=== PATIENT | female | born 1965 | race Caucasian/White ===

== ENCOUNTER 2018-01-18 19:08 | Emergency (ER) | payer OTHER ==
[~2018-01-18] VITALS: Ht 160 cm; Wt 54.8 kg
[2018-01-18 19:10] VITALS: TEMP 36.7
[2018-01-18] MEDS ORDERED: SODIUM CHLORIDE 0.9% 1000ML 1,000 ML IV STA (19:38)
--- NOTE | 2018-01-18 19:50 | EMERGENCY ROOM VISIT NOTE ---
History Report prepared by Laura: Kiara Avelar Under the Supervision of: Dr. Rod Whatley M.D. First contact with patient: 19:15 Chief Complaint: NEURO SYMPTOMS Stated Complaint: CERVICAL DISK IS PRESSING ON SPINAL CORD History of Present Illness The patient is a 52 year old female who presents to the Emergency Room with complaints of worsening neurological symptoms occurring over the last month. She states that she has been shaking, passing out, and has been unable to feel her sides or hands intermittently over the last month. She also reports that sometimes she is unable to walk, read, or function because of her symptoms. The patient reports feeling very weak. She reports that a couple weeks ago she had a hypoglycemic seizure where she was shaking and half of her body went numb for two hours. She states that she constantly has numbness and tingling over her body. 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 She states that she had a cervical disc pressing against her spinal cord in 2013 that she had removed. The patient also reports having bulging discs and states that there is concern that another cervical disc is pressing up against her spine. She states that her extremities swell intermittently when she has the neurologic symptoms. The patient states that she also has gastritis, GERD, and immunosuppression, and reports that she gets frequent UTI's due to the immunosuppression. The patient states that she has also been incontinent the last 2 days and that she had an endoscopy done which did not explain why she was incontinent. She states that her doctor that she sees for her spine is Dr. Cortez in [place]. She reports a family history of cancer. Source of History: patient Onset: over the last month Position: other (generalized ) Quality: other (neurological symptoms ) Timing: worsening Associated Symptoms: + weakness (shaking, passing out), + numbness Review of Systems See HPI for pertinent positives & negatives. A total of 10 systems reviewed and were otherwise negative. Past Medical & Surgical Medical Problems: (1) Back problem (2) Herniated disc (3) Spina bifida Surgical Problems: (1) H/O cervical discectomy Family History Cancer Social History Smoking Status: Current Every Day Smoker Marital Status: in relationship Occupation Status: employed Current/Historical Medications Scheduled Biotin (Super Biotin), 10,000 MCG PO DAILY Gabapentin (Neurontin), 800 MG PO TID Pantoprazole (Protonix), 40 MG PO DAILY Ranitidine Hcl (Zantac), 150 MG PO HS Sulfa/Trimethoprim (Bactrim Ds 800MG/160MG), 1 TAB PO BID [Corticosteroid Inh], 1 PUFF INH DAILY Allergies Coded Allergies: Erythromycin (Verified Allergy, Severe, HIVES, 01/18/18) Penicillins (Verified Allergy, Severe, HIVES, 01/18/18) Cat Dander (Verified Allergy, Intermediate, ITCHY EYES, SNEEZING, PUFFY EYES, CONGESTION, 01/18/18) Ciprofloxacin (Verified Allergy, Intermediate, HIVES, 01/18/18) Doxycycline (Verified Allergy, Intermediate, HIVES, 01/18/18) Molds and Smuts (Verified Allergy, Intermediate, ITCHY, PUFFY EYES, SNEEZING, CONGESTION, 01/18/18) POLLEN (Verified Allergy, Intermediate, ITCHY, PUFFY EYES, SNEEZING, CONGESTION, 01/18/18) Uncoded Allergies: MILDEW (Allergy, Intermediate, ITCHY, PUFFY EYES, SNEEZING, CONGESTION, ) Physical Exam Vital Signs Date Time Temp Pulse Resp B/P (MAP) Pulse Ox O2 Delivery O2 Flow Rate FiO2 01/18/18 22:12 75 16 119/82 98 01/18/18 21:45 72 13 102/74 97 Room Air 01/18/18 20:33 77 01/18/18 20:25 99 Room Air 01/18/18 20:25 99 Room Air 01/18/18 20:20 75 16 104/76 99 Room Air 87 112/75 89 107/81 01/18/18 19:10 36.7 114 16 138/90 98 Room Air Physical Exam GENERAL: Awake, alert, cachectic in appearance, in no acute distress HENT: Normocephalic, atraumatic. Oropharynx unremarkable. EYES: Normal conjunctiva. Sclera non-icteric. NECK: Supple. No nuchal rigidity. FROM. No JVD. RESPIRATORY: Clear to auscultation. CARDIAC: Regular rate, normal rhythm. Extremities warm and well perfused. Pulses equal. ABDOMEN: Soft, non-distended. No tenderness to palpation. No rebound or guarding. No masses. RECTAL: Deferred. MUSCULOSKELETAL: Chest examination reveals no tenderness. The back is symmetrical on inspection without obvious abnormality. There is no CVA tenderness to palpation. No joint edema. LOWER EXTREMITIES: Calves are equal size bilaterally and non-tender. No edema. No discoloration. NEURO: Normal sensorium. No sensory or motor deficits noted. Can walk on tip toes and heels. SKIN: No rash or jaundice noted. Medical Decision & Procedures ER Provider Diagnostic Interpretation: Radiology results as stated below per my review and radiologist interpretation: CHEST ONE VIEW PORTABLE CLINICAL HISTORY: 52 years-old Female presenting with Pt c/o SOB. TECHNIQUE: Portable upright AP view of the chest was obtained. COMPARISON: None. FINDINGS: Cardiomediastinal silhouette normal. No focal opacity. No large effusion or pneumothorax. Anterior cervical fusion hardware noted. Upper abdomen normal. IMPRESSION: 1. No acute cardiopulmonary disease. Electronically signed by: Marshall Sanchez M.D. 01/18/2018 8:20 PM Dictated Date/Time: 01/18/2018 8:19 PM Laboratory Results 01/18/18 20:10 Red Blood Count 4.89, Mean Corpuscular Volume 88.5, Mean Corpuscular Hemoglobin 30.7, Mean Corpuscular Hemoglobin Concent 34.6, Mean Platelet Volume 11.4, Neutrophils (%) (Auto) 56.1, Lymphocytes (%) (Auto) 36.7, Monocytes (%) (Auto) 6.0, Eosinophils (%) (Auto) 0.7, Basophils (%) (Auto) 0.3, Neutrophils # (Auto) 3.37, Lymphocytes # (Auto) 2.20, Monocytes # (Auto) 0.36, Eosinophils # (Auto) 0.04, Basophils # (Auto) 0.02 01/18/18 20:10 Test 01/18/18 19:55 01/18/18 19:56 01/18/18 20:10 Urine Color DK YELLOW Urine Appearance CLOUDY (CLEAR) Urine pH 5.0 (4.5-7.5) Urine Specific [place] 1.025 (1.000-1.030) Urine Protein NEG (NEG) Urine Glucose (UA) NEG (NEG) Urine Ketones NEG (NEG) Urine Occult Blood 1+ (NEG) Urine Nitrite POS (NEG) Urine Bilirubin NEG (NEG) Urine Urobilinogen NEG (NEG) Urine Leukocyte Esterase MODERATE (NEG) Urine WBC (Auto) >30 /hpf (0-5) Urine RBC (Auto) 0-4 /hpf (0-4) Urine Hyaline Casts (Auto) 10-30 /lpf (0-5) Urine Epithelial Cells (Auto) 5-10 /lpf (0-5) Urine Bacteria (Auto) 4+ (NEG) Bedside Glucose 90 mg/dl (70-90) White Blood Count 6.00 K/uL (4.8-10.8) Red Blood Count 4.89 M/uL (4.2-5.4) Hemoglobin 15.0 g/dL (12.0-16.0) Hematocrit 43.3 % (37-47) Mean Corpuscular Volume 88.5 fL (80-100) Mean Corpuscular Hemoglobin 30.7 pg (25-34) Mean Corpuscular Hemoglobin Concent 34.6 g/dl (32-36) Platelet Count 174 K/uL (130-400) Mean Platelet Volume 11.4 fL (7.4-10.4) Neutrophils (%) (Auto) 56.1 % Lymphocytes (%) (Auto) 36.7 % Monocytes (%) (Auto) 6.0 % Eosinophils (%) (Auto) 0.7 % Basophils (%) (Auto) 0.3 % Neutrophils # (Auto) 3.37 K/uL (1.4-6.5) Lymphocytes # (Auto) 2.20 K/uL (1.2-3.4) Monocytes # (Auto) 0.36 K/uL (0.11-0.59) Eosinophils # (Auto) 0.04 K/uL (0-0.5) Basophils # (Auto) 0.02 K/uL (0-0.2) RDW Standard Deviation 41.1 fL (36.4-46.3) RDW Coefficient of Variation 12.7 % (11.5-14.5) Immature Granulocyte % (Auto) 0.2 % Immature Granulocyte # (Auto) 0.01 K/uL (0.00-0.02) Erythrocyte Sedimentation Rate 5 mm/hr (0-21) Anion Gap 4.0 mmol/L (3-11) Est Creatinine Clear Calc Drug Dose 60.5 ml/min Estimated GFR () 84.1 Estimated GFR (Non- 72.6 BUN/Creatinine Ratio 16.8 (10-20) Calcium Level 8.6 mg/dl (8.5-10.1) Total Bilirubin 0.3 mg/dl (0.2-1) Direct Bilirubin < 0.1 mg/dl (0-0.2) Aspartate Amino Transf (AST/SGOT) 24 U/L (15-37) Alanine Aminotransferase (ALT/SGPT) 28 U/L (12-78) Alkaline Phosphatase 97 U/L (45-117) Total Creatine Kinase 77 U/L (26-192) Creatine Kinase MB 1.0 ng/ml (0.5-3.6) Creatine Kinase MB Ratio 1.3 (0-3.0) Troponin I < 0.015 ng/ml (0-0.045) C-Reactive Protein < 0.29 mg/dl (0-0.29) Total Protein 7.2 gm/dl (6.4-8.2) Albumin 3.8 gm/dl (3.4-5.0) Thyroid Stimulating Hormone (TSH) 2.520 uIu/ml (0.300-4.500) [place] Level < 0.2 mMOL/L (0.6-1.2) Lyme Disease IgG Antibody NEG (NEG) Lyme Disease IgM Antibody NEG (NEG) Labs reviewed by ED physician. Medications Administered Medications (Trade) Dose Ordered Sig/Raysa Route Start Time Stop Time Status Last Admin Dose Admin Sodium Chloride 1,000 ml @ 999 mls/hr Q1H1M STAT IV 01/18/18 19:38 01/18/18 20:38 DC 01/18/18 20:32 999 MLS/HR Ceftriaxone Sodium (Rocephin Inj) 1 gm NOW STAT IV 01/18/18 20:18 01/18/18 20:20 DC 01/18/18 20:32 1 GM ECG Per My Interpretation Indication: weakness Rate (beats per minute): 85 Rhythm: normal sinus Findings: other (no ST elevation or depression, old anterior infarct) Comparison ECG Date: no prior available ED Course 1917: Past medical records reviewed. The patient was evaluated in room A10. A complete history and physical examination was performed. 1937: Ordered Sodium Chloride 1000 ml @ 999 mls/hr IV. Medical Decision Differential diagnosis: Etiologies such as metabolic, infection, hypo/hyperglycemia, electrolyte abnormalities, cardiac sources, intracerebral event, toxicologic, neurologic, as well as others were entertained. This is a 52-year-old female who presents the emergency department after having moved here from [place]. Patient moved here to be closer to [facility]. She has a number of complaints but is very vague in her complaints. Patient has a history of Raynaud's. in addition she notes that she has polycythemia however her laboratory results here were normal. She does appear to have a urinary tract infection. The patient is insistent that there is a disc pressing on her neck which is causing her to pass out I will note the patient is able to walk on her tiptoes as well as her heels. She has no evidence of saddle anesthesia, she has no loss of bowel or bladder control here in the emergency department. She was started on IV Rocephin. MRI of the C-spine does not show any acute pressure on the spinal cord. Stressed to the patient she needs to follow-up with her orthopedic surgeon in [place]. I will place her on Bactrim for a UTI. I also contacted case management so that the patient can get a primary care physician here in [place]. Medication Reconcilliation Current Medication List: was personally reviewed by me Blood Pressure Screening Patient's blood pressure: Normal blood pressure Impression Primary Impression: Weakness Additional Impression: UTI (urinary tract infection) Scribe Attestation The scribe's documentation has been prepared under my direction and personally reviewed by me in its entirety. I confirm that the note above accurately reflects all work, treatment, procedures, and medical decision making performed by me. Departure Information Dispostion Home / Self-Care Prescriptions Sulfa/Trimethoprim (Bactrim Ds 800MG/160MG) Tab 1 TAB PO BID for 7 Days, #14 TAB Prov: Rod Whatley MD 01/18/18 Referrals No Doctor, Assigned (PCP) Patient Instructions My [facility] Problem Qualifiers Additional Impression: UTI (urinary tract infection) Urinary tract infection type: acute cystitis Hematuria presence: with hematuria Qualified Codes: N30.01 - Acute cystitis with hematuria
[2018-01-18 20:06] VITALS: Ht 160 cm; Wt 54.8 kg
[2018-01-18] MEDS ORDERED: BIOT50002 PO (20:06)
[2018-01-18] MEDS ORDERED: RANI150T3 PO (20:06)
[2018-01-18] MEDS ORDERED: [UNRECOGNIZED DRUG - OTHER] INH (20:06)
[2018-01-18] MEDS ORDERED: GABA800T PO (20:06)
[2018-01-18] MEDS ORDERED: PANT40TA PO (20:06)
[2018-01-18] MEDS ORDERED: CEFTRIAXONE SOD INJ 1 GM ADDVIAL IV STA (20:18)
--- NOTE | 2018-01-18 20:21 | DIAGNOSTIC IMAGING REPORT ---
CHEST ONE VIEW PORTABLE CLINICAL HISTORY: 52 years-old Female presenting with Pt c/o SOB. TECHNIQUE: Portable upright AP view of the chest was obtained. COMPARISON: None. FINDINGS: Cardiomediastinal silhouette normal. No focal opacity. No large effusion or pneumothorax. Anterior cervical fusion hardware noted. Upper abdomen normal. IMPRESSION: 1. No acute cardiopulmonary disease. Electronically signed by: Marshall Sanchez M.D. 01/18/2018 8:20 PM Dictated Date/Time: 01/18/2018 8:19 PM
[2018-01-18 20:25] VITALS: O2SAT 99
[2018-01-18 20:27] LABS: BASO % 0.3 %; BASO ABS # 0.02 K/uL (0-0.2); EOS % 0.7 %; EOS ABS # 0.04 K/uL (0-0.5); HEMATOCRIT 43.3 % (37-47); IG# 0.01 K/uL (0.00-0.02); LYMPH % 36.7 %; MEAN CELL VOLUME 88.5 fL (80-100); MEAN CORPUSCULAR HEMOGLOBIN 30.7 pg (25-34); MEAN CORPUSCULAR HGB CONC 34.6 g/dl (32-36); MEAN PLATELET VOLUME 11.4 fL (7.4-10.4); MONO ABS # 0.36 K/uL (0.11-0.59); NEUT % 56.1 %; NEUT ABS # 3.37 K/uL (1.4-6.5); PLATELET COUNT 174 K/uL (130-400); RED CELL DISTRIBUTION WIDTH CV 12.7 % (11.5-14.5); RED CELL DISTRIBUTION WIDTH SD 41.1 fL (36.4-46.3)
[2018-01-18 20:54] LABS: BLOOD UREA NITROGEN 15 mg/dl (7-18); CREATININE 0.92 mg/dl (0.60-1.20); GLUCOSE 67 mg/dl (70-99)
[2018-01-18 20:55] LABS: ALBUMIN 3.8 gm/dl (3.4-5.0); ALKALINE PHOSPHATASE 97 U/L (45-117); ALT/SGPT 28 U/L (12-78); AST/SGOT 24 U/L (15-37); CALCIUM 8.6 mg/dl (8.5-10.1); CARBON DIOXIDE 31 mmol/L (21-32); POTASSIUM 3.7 mmol/L (3.5-5.1); SODIUM 139 mmol/L (136-145); TOTAL PROTEIN 7.2 gm/dl (6.4-8.2)
--- NOTE | 2018-01-18 21:32 | DIAGNOSTIC IMAGING REPORT ---
CERVICAL WITHOUT CONTRAST CLINICAL HISTORY: 52 years-old Female presenting with Pt c/o disc pain, numbness in the bilateral arms, dizziness, confusion, facial paralysis. TECHNIQUE: Multisequence, multiplanar MR imaging of the cervical spine was performed without the use of intravenous contrast. IV contrast: None. COMPARISON: None. FINDINGS: Localizer images: Unremarkable. Straightening of cervical lordosis likely part to anterior cervical discectomy and fusion C5-6 with interbody spacer. Nonoperative levels demonstrate normal vertebral body height, alignment, and bone marrow signal intensity. Intervertebral discs at the nonoperative levels are grossly preserved though there is normal disc desiccation in the upper cervical spine. Multilevel degenerative changes further detailed below: C2-3: No significant neural foraminal or spinal canal narrowing. C3-4: Minimal uncovertebral hypertrophy without significant neural foraminal or spinal canal narrowing. C4-5: Right uncovertebral hypertrophy results in mild right neural foraminal narrowing. No spinal canal narrowing. C5-6: No significant neural foraminal or spinal canal narrowing. C6-7: Disc osteophyte complex/uncovertebral hypertrophy results in mild right and moderate left neural foraminal narrowing. Effacement of the ventral thecal sac without evidence of contouring of the spinal cord. C7-T1: No significant neural foraminal or spinal canal narrowing. Perineural cysts suggested bilaterally. Cervical spinal cord normal in morphology and signal intensity. No focal lesion. Craniocervical junction normal. No epidural collection. Paraspinal soft tissues within normal limits. IMPRESSION: 1. Postsurgical changes of anterior cervical discectomy and fusion of C5-6. 2. Mild adjacent level degenerative changes with neural foraminal narrowing on the right at C4-5 and left greater than right at C6-7. Electronically signed by: Marshall Sanchez M.D. 01/18/2018 9:30 PM Dictated Date/Time: 01/18/2018 9:23 PM
[2018-01-18] MEDS ORDERED: SULF800T23 PO (21:55)
[2018-01-18 22:12] VITALS: BP 119/82; PULSE 75; O2SAT 98
[2018-01-19] MEDS ORDERED: FLUT1INH5 INH (20:46)
[2018-01-19] MEDS ORDERED: CHOL20007 PO (20:46)
[2018-01-19] MEDS ORDERED: NITR-5 PO (20:49)
== END 2018-01-18 22:12 | disposition home or self-care (01) ==
LOC: C.EDB 19:11 → C.EDA 22:12
DX: R53.1 Weakness (principal); N30.01 Acute cystitis with hematuria; K21.9 Gastro-esophageal reflux disease without esophagitis; Q05.9 Spina bifida, unspecified; F17.200 Nicotine dependence, unspecified, uncomplicated; Z87.440 Personal history of urinary (tract) infections; Z98.890 Other specified postprocedural states; Z88.0 Allergy status to penicillin; Z88.1 Allergy status to other antibiotic agents; Z91.09 Other allergy status, other than to drugs and biological substances; Z79.899 Other long term (current) drug therapy

== ENCOUNTER 2018-01-19 20:06 | Emergency (ER) | payer OTHER ==
[~2018-01-19] VITALS: Ht 160 cm; Wt 55.1 kg
[~2018-01-19 20:06] MED LIST: BIOT50002 PO; GABA800T PO; PANT40TA PO; RANI150T3 PO; SULF800T23 PO; [UNRECOGNIZED DRUG - OTHER] INH
[2018-01-19 20:10] VITALS: TEMP 36.6; Ht 160 cm; Wt 55.1 kg
--- NOTE | 2018-01-19 20:41 | EMERGENCY ROOM VISIT NOTE ---
History Report prepared by Laura: Radha Stock Under the Supervision of: Dr. Rod Moser D.O. First contact with patient: 20:21 Chief Complaint: ALLERGIC REACTION Stated Complaint: HIVES,THROAT CLOSING UP DUE TO MEDS History of Present Illness The patient is a 52 year old female who presents to the Emergency Room with complaints of persistent allergic reaction starting 3 hours ago. The patient was in the ED yesterday and started on Bactrim for a UTI. She took her first dose 3 hours ago. She has started getting hives and her throat is swelling. She has not taken any Benadryl. She is allergic to several antibiotics. Source of History: patient Onset: 3 hours ago Position: other (diffuse) Quality: other (allergic reaction) Timing: other (persistent) Associated Symptoms: + rash Note: Pt reports throat swelling. Review of Systems See HPI for pertinent positives & negatives. A total of 10 systems reviewed and were otherwise negative. Past Medical & Surgical Medical Problems: (1) Back problem (2) Herniated disc (3) Spina bifida Surgical Problems: (1) H/O cervical discectomy Family History Cancer Social History Smoking Status: Current Every Day Smoker Marital Status: in relationship Current/Historical Medications Scheduled Biotin (Super Biotin), 10,000 MCG PO DAILY Cholecalciferol (Vitamin D3), 2,000 UNITS PO DAILY Fluticasone Furoate (Inhalatio (Arnuity Ellipta), 1 PUFF INH DAILY Gabapentin (Neurontin), 800 MG PO TID Pantoprazole (Protonix), 40 MG PO DAILY Ranitidine Hcl (Zantac), 150 MG PO HS Sulfa/Trimethoprim (Bactrim Ds 800MG/160MG), 1 TAB PO BID Allergies Coded Allergies: Erythromycin (Verified Allergy, Severe, HIVES, 01/19/18) Penicillins (Verified Allergy, Severe, HIVES, 01/19/18) Cat Dander (Verified Allergy, Intermediate, ITCHY EYES, SNEEZING, PUFFY EYES, CONGESTION, 01/19/18) Ciprofloxacin (Verified Allergy, Intermediate, HIVES, 01/19/18) Doxycycline (Verified Allergy, Intermediate, HIVES, 01/19/18) Molds and Smuts (Verified Allergy, Intermediate, ITCHY, PUFFY EYES, SNEEZING, CONGESTION, 01/19/18) POLLEN (Verified Allergy, Intermediate, ITCHY, PUFFY EYES, SNEEZING, CONGESTION, 01/19/18) Sulfamethoxazole w/Trimethoprim (Unverified Adverse Reaction, Severe, hives, 01/19/18) Uncoded Allergies: MILDEW (Allergy, Intermediate, ITCHY, PUFFY EYES, SNEEZING, CONGESTION, ) Physical Exam Vital Signs Date Time Temp Pulse Resp B/P (MAP) Pulse Ox O2 Delivery O2 Flow Rate FiO2 01/19/18 20:39 96 Room Air 01/19/18 20:10 36.6 93 20 135/84 98 Room Air Physical Exam CONSTITUTIONAL/VITAL SIGNS: Reviewed / noted above. GENERAL: Non-toxic in appearance. INTEGUMENTARY: Warm, dry, and [place]. Dime sized hive in the left maxillary region , no other appreciated hives. HEAD: Normocephalic. EYES: without scleral icterus or trauma. ENT/OROPHARYNX: clear and moist. LYMPHADENOPATHY/NECK: Is supple without lymphadenopathy or meningismus. RESPIRATORY: Lungs clear and equal. CARDIOVASCULAR: Regular rate and rhythm. GI/ABDOMEN: Soft and nontender. No organomegaly or pulsatile mass. No rebound or guarding. Normal bowel sounds. EXTREMITIES: Warm and well perfused. BACK: No CVA tenderness. NEUROLOGICAL: Intact without focal deficits. PSYCHIATRIC: normal affect. MUSCULOSKELETAL: Normally developed with good muscle tone. Medical Decision & Procedures Medications Administered Medications (Trade) Dose Ordered Sig/Raysa Route Start Time Stop Time Status Last Admin Dose Admin Nitrofurantoin Macrocrystals (Macrobid Cap) 100 mg ONE ONCE PO 01/19/18 20:45 01/19/18 20:46 DC 01/19/18 20:38 100 MG Diphenhydramine HCl (Benadryl Cap) 50 mg NOW ONCE PO 01/19/18 20:45 01/19/18 20:46 DC 01/19/18 20:38 50 MG ED Course 2026: Previous medical records were reviewed. The patient was evaluated in room A3. A complete history and physical examination was performed. I discussed the results and findings with the patient. She verbalized agreement of the treatment plan. She was discharged home. 2044: Benadryl Cap 50 mg PO, Macrobid Cap 100 mg PO. Medical Decision Differential diagnosis: Etiologies such as allergic reaction, anaphylaxis, urticaria, [place] syndrome, toxic epidermal necrolysis, erythema multiforme, cellulitis, as well as others were entertained. This is a 52-year-old female who presents to the ED with a chief complaint of allergic reaction. The patient was here last night and diagnosed with a UTI. The urine culture shows gram-negative bacilli. The patient was started on Bactrim. She took her first dose today around 6 PM. Shortly thereafter, she developed itchiness of her head, a sensation of swelling of the eyelids and a sensation of swelling in throat. The patient came in for evaluation. She thought she took Benadryl but accidentally took Vistaril. Her exam reveals clear lung sounds. She is in no distress. She has a small hive in the left maxillary region. The eyelids did not appear obviously swollen or edematous. Her throat is completely clear without evidence of edema or erythema. The patient appears to be having a mild reaction to the Bactrim. She will discontinue this and was started on Macrobid. She has tolerated this in the past. She has a number of other allergies to medication. The patient was given Benadryl 50 mg p.o. She will be discharged on Macrobid and Benadryl. Medication Reconcilliation Current Medication List: was personally reviewed by me Blood Pressure Screening Patient's blood pressure: Elevated blood pressure Blood pressure disposition: Elevated BP felt to be situational Impression Primary Impression: Allergic reaction Scribe Attestation The scribe's documentation has been prepared under my direction and personally reviewed by me in its entirety. I confirm that the note above accurately reflects all work, treatment, procedures, and medical decision making performed by me. Departure Information Dispostion Home / Self-Care Prescriptions Nitrofurantoin Monohyd Macrocr (Macrobid) 100 Mg Cap 100 MG PO BID, #14 CAP Prov: Rod Moser D.O. 01/19/18 Referrals No Doctor, Assigned (PCP) Patient Instructions My [facility] Additional Instructions Macrobid as prescribed. Take Benadryl 50mg every 6-8 hours as needed for allergic reaction symptoms. Follow other directions given. Discontinue Bactrim.
[2018-01-19] MEDS ORDERED: NITROFURANTOIN MONOHYDRATE 100 MG CAP PO ONE (20:45)
[2018-01-19] MEDS ORDERED: FLUT1INH5 INH (20:46)
[2018-01-19] MEDS ORDERED: CHOL20007 PO (20:46)
[2018-01-19] MEDS ORDERED: NITR-5 PO (20:49)
[2018-01-19 21:09] VITALS: BP 108/75; PULSE 69; O2SAT 100
--- NOTE | 2018-01-20 12:58 | Pharmacy Progress Note ---
ED Pharmacist Culture FollowUp Date of Service: January 20, 2018. Patient was sent home with a prescription for bactrim, subsequently switched to macrobid 100mg BID X 7 days, which should cover the E. coli growing from the patient's urine culture.
== END 2018-01-19 21:10 | disposition home or self-care (01) ==
LOC: C.EDB 20:07 → C.EDA 21:10
DX: L50.9 Urticaria, unspecified (principal); T37.0X5A Adverse effect of sulfonamides, initial encounter; X58.XXXA Exposure to other specified factors, initial encounter; Q05.9 Spina bifida, unspecified; N39.0 Urinary tract infection, site not specified; F17.200 Nicotine dependence, unspecified, uncomplicated; Z79.899 Other long term (current) drug therapy; Z88.1 Allergy status to other antibiotic agents; Z88.0 Allergy status to penicillin; Z88.2 Allergy status to sulfonamides; Z91.048 Other nonmedicinal substance allergy status

== ENCOUNTER 2018-04-25 23:03 | Emergency (ER) | payer OTHER ==
[~2018-04-25] VITALS: Ht 160 cm; Wt 51.6 kg
[~2018-04-25 23:03] MED LIST changes: +BIOT1CAP8 PO; -BIOT50002 PO; +CHOL20007 PO; +FLUT1INH5 INH; -SULF800T23 PO; +TRAM-10 PO; -[UNRECOGNIZED DRUG - OTHER] INH
[2018-04-25 23:10] VITALS: Ht 160 cm; Wt 51.6 kg
[2018-04-25] MEDS ORDERED: KETOROLAC TROMETHAMINE 30 MG/ML VIAL IV STA (23:42)
--- NOTE | 2018-04-25 23:45 | EMERGENCY ROOM VISIT NOTE ---
History Report prepared by Laura: Heather Myles Under the Supervision of: Dr. Renetta Calderon D.O. First contact with patient: 23:23 Chief Complaint: URINARY SYMPTOMS Stated Complaint: LOWER BACK AND ABDOMINAL PAIN, URINARY ISSUES Nursing Triage Summary: buring and frequency with urination History of Present Illness The patient is a 52 year old female who presents to the Emergency Room with complaints of persistent urinary symptoms that started a few days ago. The patient rates her pain a 7/10 in severity. She reports she has had frequent urination and pain with urination. She states the second day that her symptoms started she was unable to urinate at all. She notes her urine is not cloudy and does not have an odor. She also complains of left abdominal pain and nausea for the last few days. She denies vomiting, diarrhea, or blood in stool. The patient has a history of UTI and kidney stones. She notes her last UTI was 2 months ago. She states "it feels like someone set me on fire. I thought I had a fever but I don't." She notes she had black and blue circles that looked like bruises on her legs but states they did not hurt. Source of History: patient Onset: a few days ago Symptom Intensity: 7/10 Quality: other (frequent urination) Timing: other (persistent) Associated Symptoms: + nausea, + abdominal pain, No vomiting, No melena, No diarrhea Review of Systems See HPI for pertinent positives & negatives. A total of 10 systems reviewed and were otherwise negative. Past Medical & Surgical Medical Problems: (1) Back problem (2) Herniated disc (3) Spina bifida Surgical Problems: (1) H/O cervical discectomy Family History Cancer Social History Smoking Status: Current Every Day Smoker Alcohol Use: none Marital Status: in relationship Housing Status: other Occupation Status: unemployed Current/Historical Medications Scheduled Biotin (Biotin), 3,000 MCG PO DAILY Cholecalciferol (Vitamin D3), 2,000 UNITS PO DAILY Fluticasone Furoate (Inhalatio (Arnuity Ellipta), 1 PUFF INH DAILY Gabapentin (Neurontin), 800 MG PO TID Pantoprazole (Protonix), 40 MG PO DAILY Scheduled PRN Ranitidine Hcl (Zantac), 150 MG PO HS PRN for ACID REFLUX Tramadol (Ultram), 50-100 MG PO Q4H PRN for Pain Allergies Coded Allergies: Erythromycin (Verified Allergy, Severe, HIVES, 01/19/18) Penicillins (Verified Allergy, Severe, HIVES, 01/19/18) Cat Dander (Verified Allergy, Intermediate, ITCHY EYES, SNEEZING, PUFFY EYES, CONGESTION, 01/19/18) Ciprofloxacin (Verified Allergy, Intermediate, HIVES, 01/19/18) Doxycycline (Verified Allergy, Intermediate, HIVES, 01/19/18) Molds and Smuts (Verified Allergy, Intermediate, ITCHY, PUFFY EYES, SNEEZING, CONGESTION, 01/19/18) POLLEN (Verified Allergy, Intermediate, ITCHY, PUFFY EYES, SNEEZING, CONGESTION, 01/19/18) Sulfamethoxazole w/Trimethoprim (Unverified Adverse Reaction, Severe, hives, 01/19/18) Uncoded Allergies: MILDEW (Allergy, Intermediate, ITCHY, PUFFY EYES, SNEEZING, CONGESTION, ) Physical Exam Vital Signs Date Time Temp Pulse Resp B/P (MAP) Pulse Ox O2 Delivery O2 Flow Rate FiO2 04/26/18 01:02 36.5 92 16 126/81 97 04/26/18 00:45 92 16 126/81 97 Room Air 04/25/18 23:10 36.5 86 18 132/87 98 Room Air Physical Exam HEENT: Head - normocephalic and atraumatic Pupils are equal, round, and reactive to light. Extraocular eye muscles are intact, and sclera are anicteric. Nose - moist nasal mucosa without discharge. Mouth - moist buccal mucosa. Oropharynx is nonerythematous and there is no tonsillar exudate or edema noted. Neck: Supple; no JVD, nuchal rigidity, cervical lymphadenopathy. Heart: Regular rate and rhythm. There is a normal S1 and S2 with no murmurs, clicks, or gallops appreciated. Lungs: Clear to auscultation bilaterally with no wheezes, rales, or rhonchi. Abdomen: Soft, pain with palpation to left lower quadrant, nondistended, with good bowel sounds. There are no palpable pulsatile masses or hepatosplenomegaly. There is no guarding, rigidity, or rebound noted. Extremities: No evidence of cyanosis, clubbing, or edema. There are easily palpable peripheral pulses. Skin: warm and dry with good turgor and no rashes. Medical Decision & Procedures Laboratory Results 04/25/18 23:49 Red Blood Count 4.55, Mean Corpuscular Volume 90.5, Mean Corpuscular Hemoglobin 30.3, Mean Corpuscular Hemoglobin Concent 33.5, Mean Platelet Volume 12.2, Neutrophils (%) (Auto) 46.5, Lymphocytes (%) (Auto) 45.1, Monocytes (%) (Auto) 6.3, Eosinophils (%) (Auto) 1.1, Basophils (%) (Auto) 0.8, Neutrophils # (Auto) 2.93, Lymphocytes # (Auto) 2.84, Monocytes # (Auto) 0.40, Eosinophils # (Auto) 0.07, Basophils # (Auto) 0.05 04/25/18 23:49 Test 04/25/18 23:49 White Blood Count 6.30 K/uL (4.8-10.8) Red Blood Count 4.55 M/uL (4.2-5.4) Hemoglobin 13.8 g/dL (12.0-16.0) Hematocrit 41.2 % (37-47) Mean Corpuscular Volume 90.5 fL (80-100) Mean Corpuscular Hemoglobin 30.3 pg (25-34) Mean Corpuscular Hemoglobin Concent 33.5 g/dl (32-36) Platelet Count 182 K/uL (130-400) Mean Platelet Volume 12.2 fL (7.4-10.4) Neutrophils (%) (Auto) 46.5 % Lymphocytes (%) (Auto) 45.1 % Monocytes (%) (Auto) 6.3 % Eosinophils (%) (Auto) 1.1 % Basophils (%) (Auto) 0.8 % Neutrophils # (Auto) 2.93 K/uL (1.4-6.5) Lymphocytes # (Auto) 2.84 K/uL (1.2-3.4) Monocytes # (Auto) 0.40 K/uL (0.11-0.59) Eosinophils # (Auto) 0.07 K/uL (0-0.5) Basophils # (Auto) 0.05 K/uL (0-0.2) RDW Standard Deviation 41.9 fL (36.4-46.3) RDW Coefficient of Variation 12.7 % (11.5-14.5) Immature Granulocyte % (Auto) 0.2 % Immature Granulocyte # (Auto) 0.01 K/uL (0.00-0.02) Urine Color YELLOW Urine Appearance CLEAR (CLEAR) Urine pH 7.0 (4.5-7.5) Urine Specific [place] 1.018 (1.000-1.030) Urine Protein NEG (NEG) Urine Glucose (UA) NEG (NEG) Urine Ketones NEG (NEG) Urine Occult Blood NEG (NEG) Urine Nitrite NEG (NEG) Urine Bilirubin NEG (NEG) Urine Urobilinogen NEG (NEG) Urine Leukocyte Esterase TRACE (NEG) Urine WBC (Auto) 1-5 /hpf (0-5) Urine RBC (Auto) 0-4 /hpf (0-4) Urine Hyaline Casts (Auto) 1-5 /lpf (0-5) Urine Epithelial Cells (Auto) 10-20 /lpf (0-5) Urine Bacteria (Auto) NEG (NEG) Anion Gap 6.0 mmol/L (3-11) Est Creatinine Clear Calc Drug Dose 69.4 ml/min Estimated GFR () 101.2 Estimated GFR (Non- 87.3 BUN/Creatinine Ratio 32.2 (10-20) Calcium Level 8.5 mg/dl (8.5-10.1) Laboratory results per my review. Medications Administered Medications (Trade) Dose Ordered Sig/Raysa Route Start Time Stop Time Status Last Admin Dose Admin Ketorolac Tromethamine (Toradol Inj) 30 mg NOW STAT IV 04/25/18 23:42 04/25/18 23:44 DC 04/25/18 23:42 30 MG Procedure Toradol Inj 30 mg IV. ED Course 2323: Past medical records reviewed. The patient was evaluated in room B2. A complete history and physical exam was performed. An IV lock was initiated and labs were drawn as above. A urine specimen was obtained. 2342: Ordered Toradol Inj 30 mg IV. 0038: I updated the patient on her test results. 0045: Upon reevaluation, the patient is resting comfortably. She verbalized agreement of the treatment plan. She was discharged home. Medical Decision The patient is a 52 year old female who presents to the Emergency Department with urinary symptoms. Differential diagnosis includes ureteral colic, UTI, pyelonephritis, diverticulitis. Lab results show: No leukocytosis Stable H&H Urine only positive for epithelial cells Trace leukocyte esterase BUN 25 Creatinine 0.7 Normal glucose This is a 52-year-old female brought to the emergency department tonight for dysuria, urinary frequency, and urinary urgency. The patient does have a history of previous urinary tract infections and previous kidney stones. Urinalysis was unremarkable. The patient has follow-up scheduled with her practitioner who is evaluating her for vasculitis. The bruising that the patient had last week, seems to have resolved. The patient was told return to the emergency department if symptoms worsened. Medication Reconcilliation Current Medication List: was personally reviewed by me Blood Pressure Screening Patient's blood pressure: Normal blood pressure Impression Primary Impression: Dysuria Scribe Attestation The scribe's documentation has been prepared under my direction and personally reviewed by me in its entirety. I confirm that the note above accurately reflects all work, treatment, procedures, and medical decision making performed by me. Departure Information Dispostion Home / Self-Care Referrals Jennifer Staples M.D. (PCP) Patient Instructions My [facility] Additional Instructions Rest. Follow up with PCP if symptoms persist
[2018-04-25 23:58] LABS: BASO % 0.8 %; BASO ABS # 0.05 K/uL (0-0.2); EOS % 1.1 %; EOS ABS # 0.07 K/uL (0-0.5); HEMATOCRIT 41.2 % (37-47); HEMOGLOBIN 13.8 g/dL (12.0-16.0); IG# 0.01 K/uL (0.00-0.02); LYMPH % 45.1 %; LYMPH ABS # 2.84 K/uL (1.2-3.4); MEAN CELL VOLUME 90.5 fL (80-100); MEAN CORPUSCULAR HEMOGLOBIN 30.3 pg (25-34); MEAN CORPUSCULAR HGB CONC 33.5 g/dl (32-36); MEAN PLATELET VOLUME 12.2 fL (7.4-10.4); MONO % 6.3 %; NEUT % 46.5 %; NEUT ABS # 2.93 K/uL (1.4-6.5); PLATELET COUNT 182 K/uL (130-400); RED CELL DISTRIBUTION WIDTH CV 12.7 % (11.5-14.5); RED CELL DISTRIBUTION WIDTH SD 41.9 fL (36.4-46.3)
[2018-04-26 00:18] LABS: CALCIUM 8.5 mg/dl (8.5-10.1); CREATININE 0.79 mg/dl (0.60-1.20); POTASSIUM 4.1 mmol/L (3.5-5.1)
[2018-04-26 01:02] VITALS: BP 126/81; PULSE 92; TEMP 36.5; O2SAT 97
== END 2018-04-26 01:03 | disposition home or self-care (01) ==
LOC: C.EDB 23:04
DX: R30.0 Dysuria (principal); Q05.9 Spina bifida, unspecified; F17.200 Nicotine dependence, unspecified, uncomplicated; Z88.0 Allergy status to penicillin; Z88.2 Allergy status to sulfonamides; Z88.8 Allergy status to other drugs, medicaments and biological substances